=== PATIENT | male | born 1970 | race Caucasian/White ===

== ENCOUNTER → 2022-03-24 | Outpatient (CLI) | payer BC, SELFPAY ==
--- NOTE | 2022-03-24 09:45 | EKG12_ITS ---
Test Reason : PRE-OP Blood Pressure : / mmHG Vent. Rate : 071 BPM Atrial Rate : 071 BPM P-R Int : 104 ms QRS Dur : 086 ms QT Int : 370 ms P-R-T Axes : 062 017 027 degrees QTc Int : 402 ms Sinus rhythm with short NE Otherwise normal ECG Confirmed by SHANE WHITE, JAYLENE ([id number]), graphic editor MANDY FOSTER ([id number]) on 03/25/2022 8:21:21 AM Referred By: Duong Trinidad Confirmed By:JAYLENE LYNN MD
[2022-03-24 09:50] LABS: Absolute Lymphocyte Count 2.26 X10^3/uL (0.83-4.51); Absolute Neutrophil Count 4.8 X10^3/uL (2.0-7.7); Basophil# 0.07 X10^3/uL; Basophil% 0.9 % (0-1); Eosinophil# 0.08 X10^3/uL; Hemoglobin 15.4 g/dL (13.0-16.5); Lymphocyte # 2.26 X10^3/ul (0.83-4.51); Mean Corp Hgb Conc 33.5 g/dL (32-36); Mean Corpuscular Hgb 32.4 pg (27.0-32.0); Mean Corpuscular Volume 96.8 fL (80-94); Mean Platelet Vol. 9.9 fl (6.2-12.0); Monocyte# 0.87 X10^3/uL; Monocyte% 10.8 % (0-10); NRBC Flagged by Analyzer 0 % (0-5); Neutrophil # 4.75 X10^3/uL (2.7-7.7); Neutrophil % 58.9 % (47-70); Platelet Count 252 K/mm3 (150-450); RBC Distribution Width CV 13.5 % (11.6-14.6); RBC Distribution Width SD 47.9 fl (35.1-43.9); Red Blood Count 4.75 M/mm3 (4.6-6.2); White Blood Count 8.1 K/mm3 (4.4-11.0)
[2022-03-24 10:30] LABS: Anion Gap 9 (5-15); BUN 13 mg/dL (7-18); Calcium,Total 8.9 mg/dL (8.5-10.1); Chloride 107 mmol/L (98-107); Creatinine, Serum 0.68 mg/dL (0.70-1.30); EST Glomerular Filtration Rate 129 mL/min (>60); Est Glom Filt Rate - Afr Amer 156 mL/min (>60); Glucose 112 mg/dL (74-106); Potassium 3.8 mmol/L (3.5-5.1); Sodium Level 141 mmol/L (136-145)
== END | disposition home or self-care (01) ==
PROVIDERS: PCP Nurse Practitioner Family; Referring Provider Orthopaedic Surgery; Visit Provider Orthopaedic Surgery
DX: Z01.818 Encounter for other preprocedural examination (principal)
CPT/HCPCS: 36415; 80048; 85025; 87426; 93005; C9803

== ENCOUNTER → 2023-05-31 | Outpatient (CLI) | payer BC, SELFPAY ==
--- NOTE | 2023-05-31 12:45 | NEURO ---
NCS and/or EMG Patient Report Ordering Doctor: Devyn Cormier NP DATE OF SERVICE: 05/31/23 Rosalio presents for electrodiagnostic testing of the left upper limb. He reports weakness and numbness in the left hand. Electrodiagnostic findings: Left median motor nerve demonstrates prolonged distal latency with reduced amplitude and reduced conduction velocity. Left ulnar motor nerve demonstrates normal distal latency and amplitude with normal conduction across the elbow. Prolonged left median F-wave. Prolonged left median sensory latency at the wrist. Normal ulnar and radial sensory responses. Needle EMG testing was performed in the left upper limb. There was no evidence of denervation noted in any muscles tested and motor unit action potentials were of normal amplitude and duration. Electrodiagnostic impression: This is an abnormal study. 1. Electrodiagnostic findings demonstrate left-sided median mononeuropathy. This is consistent with a moderate to advanced left carpal tunnel syndrome.
== END | disposition home or self-care (01) ==
LOC: PSN 10:29
PROVIDERS: PCP Nurse Practitioner Family; Referring Provider Nurse Practitioner Family; Visit Provider Nurse Practitioner Family
DX: G56.02 Carpal tunnel syndrome, left upper limb (principal)
CPT/HCPCS: 95886; 95910

== ENCOUNTER 2025-05-03 10:05 | Emergency (ER) | payer BC, SELFPAY ==
[2025-05-03 10:05] VITALS: BP 135/92; PULSE 74; RESP 14; TEMP 36.2; O2SAT 98; BMI 24.2
[2025-05-03] MEDS: Tetracaine 0.5% Ophthalmic Bottle 3 DRP LEFT EYE (11:05)
== END 2025-05-03 11:05 | disposition home or self-care (01) ==
PROVIDERS: Emergency Provider Emergency Medicine; PCP Nurse Practitioner Family; Visit Provider Emergency Medicine
DX: H57.12 Ocular pain, left eye (principal); M79.7 Fibromyalgia; H53.8 Other visual disturbances; Z97.3 Presence of spectacles and contact lenses; F17.210 Nicotine dependence, cigarettes, uncomplicated
CPT/HCPCS: 99282